=== PATIENT | male | born 1975 | race Caucasian/White ===

== ENCOUNTER 2016-06-13 14:00 | Emergency (ER) | payer BC ==
[2016-06-13] MEDS ORDERED: ONDANSETRON DISINTEGRATING 4 MG TAB PO ONE (15:48)
[2016-06-13] MEDS ORDERED: DOXYCYCLINE HYCLATE 100 MG CAP/TAB PO ONE (15:49)
[2016-06-13] MEDS ORDERED: AZITHROMYCIN 250 MG TAB PO ONE (15:49)
--- NOTE | 2016-06-13 15:53 | UCPHY ---
H & P Patient Type: New Chief Complaint Nursing Narrative: l testicular pain since monday Time Seen by Provider: 06/13/16 15:37 HPI/ROS: CHIEF COMPLAINT: Left testicular pain HISTORY OF PRESENT ILLNESS: Patient is a 41-year-old man who comes to the Urgent Care complaining of left testicular pain. He has had these symptoms intermittently for the last 2 years since his vasectomy. He states that they worsened over the last 4 days. He has not had any discharge. No fever. No trauma. He is monogamous with his and does not suspect her of any promiscuity. He states that it hurts to ejaculation. He does not have any dysuria or hematuria or frequency. No abdominal pain or flank pain. Hernia. No pain with defecation. REVIEW OF SYSTEMS: Constitutional: denies: chills, fever, recent illness, recent injury EENTM: denies: blurred vision, double vision, nose congestion Respiratory: denies: cough, shortness of breath Cardiac: denies: chest pain, irregular heart rate, lightheadedness, palpitations Gastrointestinal/Abdominal: denies: abdominal pain, diarrhea, nausea, vomiting, blood streaked stools Genitourinary: See HPI Musculoskeletal: denies: joint pain, muscle pain Skin: denies: lesions, rash, jaundice, bruising Neurological: denies: headache, numbness, paresthesia, tingling, dizziness, weakness Hematologic/Lymphatic: denies: blood clots, easy bleeding, easy bruising Immunologic/allergic: denies: HIV/AIDS, transplant EXAM: GENERAL: Well-appearing, well-nourished and in no acute distress. HEAD: Atraumatic, normocephalic. EYES: Pupils equal round and reactive to light, extraocular movements intact, sclera anicteric, conjunctiva are normal. ENT: TMs normal, nares patent, oropharynx clear without exudates. Moist mucous membranes. NECK: Normal range of motion, supple without lymphadenopathy or JVD. LUNGS: Breath sounds clear to auscultation bilaterally and equal. No wheezes rales or rhonchi. HEART: Regular rate and rhythm without murmurs, rubs or gallops. ABDOMEN: Soft, nontender, normoactive bowel sounds. No guarding, no rebound. No masses appreciated. : Nontender testicle, tender epididymis, normal nontender varicose vessels, no palpable hernia, no discharge or erythema or swelling. BACK: No CVA tenderness, no spinal tenderness, step-offs or deformities EXTREMITIES: Normal range of motion, no pitting or edema. No clubbing or cyanosis. NEUROLOGICAL: Cranial nerves II through XII grossly intact. Normal speech, normal gait. 5/5 strength, normal movement in all extremities, normal sensation PSYCH: Normal mood, normal affect. SKIN: Warm, dry, normal turgor, no visible rashes or lesions. Source: Patient Exam Limitations: No limitations - Medical/Surgical History Hx Asthma: No Hx Chronic Respiratory Disease: No Hx Diabetes: No Hx Cardiac Disease: No Hx Renal Disease: No Hx Cirrhosis: No Hx Alcoholism: No Other PMH: denies - Family History Significant Family History: No pertinent family hx - Social History Smoking Status: Never smoked Alcohol Use: Sober Drug Use: None Constitutional: Initial Vital Signs Temperature (C) 37 C 06/13/16 14:58 Heart Rate 61 06/13/16 14:58 Respiratory Rate 15 06/13/16 14:58 Blood Pressure 115/64 06/13/16 14:58 O2 Sat (%) 96 06/13/16 14:58 O2 Delivery Mode Room Air Allergies/Adverse Reactions: No Known Allergies Allergy (Unverified 06/13/16 14:58) Home Medications: Medication Instructions Recorded Doxycycline Hyclate [Vibramycin] 100 mg PO BID #30 cap 06/13/16 Medical Decision Making - Diagnostics Imaging Results: Imaging Impressions Testicular Ultrasound 06/13/16 14:14 Impression: 1. Left epididymitis. 2. Small bilateral hydroceles. 3. No intratesticular masses or testicular torsion. Findings and recommendations discussed with Emergency Department physician, OKSANA HOLLOWAY at 15:03 hour, 06/13/2016. Final report concurs with initial preliminary interpretation. Imaging: Discussed imaging studies w/ housecalls nurse Radiologist ED Course/Re-evaluation: Patient's symptoms and ultrasound are consistent with epididymitis. He is not also suspicious of sexually transmitted disease. Will treat him with a dose of azithromycin and doxycycline which should cover most E coli strains as well. We will send the patient's urine for cultures. We discussed the things that we can rule out here in the urgent care but he is concerned about why he has had these pains off and on for the last 2 years. I suggested we start with antibiotics and if his symptoms do not improve that he follow up with urologist. He understands and agrees with this plan. He declines further workup or testing at this time. Differential Diagnosis: Partial list of the Differential diagnosis considered include but were not limited to; orchitis, epididymitis, testicular torsion and although unlikely based on the history and physical exam, I also considered hernia, trauma, kidney stone, urinary tract infection. I discussed these differential diagnoses and the plan with the patient as well as the usual and expected course. The patient understands that the diagnosis is provisional and that in medicine we are not always correct and that further workup is often warranted. Usual and customary warnings were given. All of the patient's questions were answered. The patient was instructed to return to the emergency department should the symptoms at all worsen or return, otherwise to followup with the physician as we discussed. - Data Points Laboratory Results: 06/13/16 15:55 Urine Color YELLOW Urine Appearance CLEAR Urine pH 7.0 (5.0-7.5) Ur Specific [place] 1.015 (1.002-1.030) Urine Protein NEGATIVE (NEGATIVE) Urine Ketones NEGATIVE (NEGATIVE) Urine Blood NEGATIVE (NEGATIVE) Urine Nitrate NEGATIVE (NEGATIVE) Urine Bilirubin NEGATIVE (NEGATIVE) Urine Urobilinogen 0.2 EU EU (0.2-1.0) Ur Leukocyte Esterase NEGATIVE (NEGATIVE) Ur Culture Indicated? NOT INDICATED (NI) Urine Glucose NEGATIVE (NEGATIVE) Medications Given: Discontinued Medications Azithromycin (Zithromax) 1,000 mg PO EDNOW ONE PRN Reason: Protocol Stop: 06/13/16 15:50 Last Admin: 06/13/16 16:07 Dose: 1,000 mg Doxycycline Hyclate (Doxycycline Hyclate) 100 mg PO EDNOW ONE PRN Reason: Protocol Stop: 06/13/16 15:50 Last Admin: 06/13/16 16:08 Dose: 100 mg Ondansetron HCl (Zofran Odt) 4 mg PO EDNOW ONE Stop: 06/13/16 15:49 Last Admin: 06/13/16 16:15 Dose: Not Given Departure - Departure Disposition: Home, Routine, Self-Care Clinical Impression: Epididymitis Condition: Fair Instructions: Epididymitis (ED) Referrals: NONE *PRIMARY CARE P,. [Primary Care Provider] - As per Instructions Parker Caruso MD [Medical Doctor] - As per Instructions Prescriptions: Doxycycline Hyclate [Vibramycin] 100 mg PO BID #30 cap - PQRS PQRS Measurement: Not applicable
[2016-06-13 16:02] LABS: COLOR YELLOW; LEUKOCYTE ESTERASE,URINE NEGATIVE (NEGATIVE); NITRITE,URINE NEGATIVE (NEGATIVE)
[2016-06-13 16:23] VITALS: BP 120/68; PULSE 65; RESP 18; TEMP 98.6; O2SAT 94
== END 2016-06-13 16:18 | disposition home or self-care (01) ==
LOC: CED 14:00
DX: N45.1 Epididymitis (principal); N43.3 Hydrocele, unspecified
CPT/HCPCS: 76870-PO; 81003-PO; G0463-PO

== ENCOUNTER → 2018-03-22 | Outpatient (CLI) | payer BC | LOC: GIMAGING 09:52 → EDSTATUS 15:40 | PROVIDERS: ATTEND Family Medicine | DX: R10.84 Generalized abdominal pain (principal) | CPT/HCPCS: 74018-PO ==

== ENCOUNTER → 2018-07-31 | Outpatient (CLI) | payer BC | LOC: FIMAGING 07:11 ==